=== PATIENT | male | born 1990 | race Caucasian/White ===

== ENCOUNTER 2017-05-18 21:43 | Inpatient (IN) | payer MEDICAID, OTHER ==
[2017-05-19] MEDS: LACTATED RINGER'S 1,000 ML IV (01:09)
[2017-05-19 01:11] LABS: ADD MAN DIFF? NO
[2017-05-19 01:12] LABS: WHITE BLOOD COUNT 6.6 10^3/ul (4.8-10.8)
[2017-05-19 01:12] LABS: BASOPHILS % 0.3 % (0.0-2.0); EOSINOPHILS # 0.3 10^3/ul (0.0-0.5); EOSINOPHILS % 4.6 % (0.0-7.0); HEMATOCRIT 36.7 % (42.0-52.0); HEMOGLOBIN 12.4 g/dl (14.0-18.0); LYMPHOCYTES # 1.8 10^3/ul (0.8-2.9); LYMPHOCYTES % 26.7 % (15.0-51.0); MEAN CORPUSCULAR HEMOGLOBIN 28.8 pg (29.0-33.0); MEAN CORPUSCULAR HGB CONC 33.8 g/dl (32.0-37.0); MEAN CORPUSCULAR VOLUME 85.3 fl (82.0-101.0); MEAN PLATELET VOLUME 8.7 fl (7.4-10.4); MONOCYTE # 0.6 10^3/ul (0.3-0.9); MONOCYTES % 9.1 % (0.0-11.0); NEUTROPHIL # 3.9 10^3/ul (1.6-7.5); PLATELET COUNT 275 10^3/UL (140-415)
[2017-05-19 01:36] LABS: ALANINE AMINOTRANSFERASE 71 IU/L (13-69); ALBUMIN 3.5 g/dl (3.3-4.9); ALBUMIN/GLOBULIN RATIO 1.06; ALKALINE PHOSPHATASE 101 IU/L (42-121); ANION GAP 13 (8-16); ASPARTATE AMINO TRANSFERASE 41 IU/L (15-46); BILIRUBIN,INDIRECT 0.4 mg/dl (0-1.1); BILIRUBIN,TOTAL 0.4 mg/dl (0.2-1.3); BLOOD UREA NITROGEN 15 mg/dl (7-20); CALCIUM 8.6 mg/dl (8.4-10.2); CARBON DIOXIDE 27 mmol/L (21-31); CHLORIDE 106 mmol/L (97-110); CREATININE 0.77 mg/dl (0.61-1.24); GLUCOSE 113 mg/dl (70-220); LIPASE 67 U/L (23-300); POTASSIUM 3.7 mmol/L (3.5-5.1); SODIUM 142 mmol/L (135-144); TOTAL PROTEIN 6.8 g/dl (6.1-8.1)
[2017-05-19] MEDS: CLINDAMYCIN 900 MG/D5W (PMX) 50 ML IVPB (02:12)
[2017-05-19] MEDS: traMADol 50 MG TAB PO (02:22)
[2017-05-19] MEDS: VANCOMYCIN 1 GM (PMX) 250 ML IVPB (03:27)
[2017-05-19] MEDS ORDERED: HYDROCODONE/APAP (5/325) TAB PO (06:00)
[2017-05-19] MEDS ORDERED: ONDANSETRON 4 MG INJ IV (06:00)
[2017-05-19] MEDS ORDERED: ACETAMINOPHEN 325 MG TAB PO (06:00)
[2017-05-19] MEDS ORDERED: ALBUTEROL/IPRATROPIUM (NEB) 3 ML AMP HHN (06:00)
[2017-05-19] MEDS ORDERED: VANCOMYCIN IV PER PHARMACY XX (06:00)
[2017-05-19] MEDS ORDERED: NACL 0.9% 3 ML SYG IV (06:00)
[2017-05-19] MEDS: CEFEPIME 1GM/50 ML (PMX) 50 ML IVPB ×2 (12:13→21:38)
[2017-05-19] MEDS: ENOXAPARIN 40 MG/0.4 ML SYG SC (12:14)
[2017-05-19] MEDS: morphine 2 MG INJ IV ×2 (13:12→19:29)
[2017-05-19] MEDS: VANCOMYCIN 1 GM 250 ML IVPB ×2 (13:12→19:27)
[2017-05-20] MEDS: morphine 2 MG INJ IV ×2 (00:49→06:55)
[2017-05-20] MEDS: VANCOMYCIN 1 GM 250 ML IVPB ×3 (01:36→18:17)
[2017-05-20] MEDS: CEFEPIME 1GM/50 ML (PMX) 50 ML IVPB ×2 (09:43→20:32)
[2017-05-20] MEDS: ENOXAPARIN 40 MG/0.4 ML SYG SC (09:49)
[2017-05-20 10:17] LABS: ADD MAN DIFF? NO
[2017-05-20 10:19] LABS: BASOPHILS % 0.5 % (0.0-2.0); EOSINOPHILS # 0.3 10^3/ul (0.0-0.5); EOSINOPHILS % 4.5 % (0.0-7.0); HEMATOCRIT 41.2 % (42.0-52.0); HEMOGLOBIN 14.2 g/dl (14.0-18.0); LYMPHOCYTES # 1.3 10^3/ul (0.8-2.9); LYMPHOCYTES % 19.8 % (15.0-51.0); MEAN CORPUSCULAR HEMOGLOBIN 29.2 pg (29.0-33.0); MEAN CORPUSCULAR HGB CONC 34.5 g/dl (32.0-37.0); MEAN CORPUSCULAR VOLUME 84.8 fl (82.0-101.0); MEAN PLATELET VOLUME 8.8 fl (7.4-10.4); MONOCYTE # 0.5 10^3/ul (0.3-0.9); MONOCYTES % 7.5 % (0.0-11.0); NEUTROPHIL # 4.5 10^3/ul (1.6-7.5); NEUTROPHILS % 67.1 % (39.0-77.0); PLATELET COUNT 313 10^3/UL (140-415); RED BLOOD COUNT 4.86 10^6/ul (4.70-6.10); RED CELL DISTRIBUTION WIDTH 11.9 % (11.5-14.5)
[2017-05-20 10:19] LABS: WHITE BLOOD COUNT 6.6 10^3/ul (4.8-10.8)
[2017-05-20 10:32] LABS: HEMOGLOBIN A1C 4.4 % (0-5.9)
[2017-05-20 10:38] LABS: ALANINE AMINOTRANSFERASE 61 IU/L (13-69); ALBUMIN 3.6 g/dl (3.3-4.9); ALBUMIN/GLOBULIN RATIO 1.02; ALKALINE PHOSPHATASE 109 IU/L (42-121); ANION GAP 13 (8-16); ASPARTATE AMINO TRANSFERASE 33 IU/L (15-46); BILIRUBIN,INDIRECT 0.3 mg/dl (0-1.1); BILIRUBIN,TOTAL 0.3 mg/dl (0.2-1.3); BLOOD UREA NITROGEN 10 mg/dl (7-20); CALCIUM 9.5 mg/dl (8.4-10.2); CARBON DIOXIDE 28 mmol/L (21-31); CHLORIDE 106 mmol/L (97-110); CHOL/HDL RATIO 3.1 RATIO; CHOLESTEROL 155 mg/dl (100-200); CREATININE 0.78 mg/dl (0.61-1.24); GLUCOSE 107 mg/dl (70-220); HDL CHOLESTEROL 49 mg/dl (30-63); LDL CHOLESTEROL,CALCULATED 73 mg/dl; MAGNESIUM 2.1 mg/dl (1.7-2.5); PHOSPHORUS 2.4 mg/dl (2.5-4.9); POTASSIUM 4.1 mmol/L (3.5-5.1); SODIUM 143 mmol/L (135-144); TOTAL PROTEIN 7.1 g/dl (6.1-8.1); TRIGLYCERIDES 164 mg/dl (0-149)
[2017-05-20 10:43] LABS: VANCOMYCIN,TROUGH 14.2 ug/ml (10.0-20.0)
[2017-05-20] MEDS ORDERED: NICOTINE (14 MG/24 HR) PATCH TRANSDERM (11:30)
[2017-05-20] MEDS: NICOTINE (21 MG/24 HR) PATCH TRANSDERM (12:53)
[2017-05-20] MEDS: SODIUM PHOSPHATE 15 MMOL in SOD CHLORIDE 0.9% 250 ML IVPB (12:54)
[2017-05-20] MEDS ORDERED: morphine LIQ (10 MG/5 ML) CUP PO (15:00)
[2017-05-20] MEDS: traMADol 50 MG TAB PO (19:04)
[2017-05-20] MEDS: METHADONE 5 MG TAB PO (20:34)
[2017-05-20] MEDS: SOD CHLORIDE 0.9% 500 ML IV (22:16)
[2017-05-21] MEDS: VANCOMYCIN 1 GM 250 ML IVPB ×3 (01:54→20:17)
[2017-05-21] MEDS: traMADol 50 MG TAB PO ×2 (01:54→13:26)
[2017-05-21 05:47] LABS: ADD MAN DIFF? NO
[2017-05-21 05:55] LABS: BASOPHILS % 0.4 % (0.0-2.0); EOSINOPHILS # 0.3 10^3/ul (0.0-0.5); EOSINOPHILS % 4.1 % (0.0-7.0); HEMATOCRIT 43.4 % (42.0-52.0); HEMOGLOBIN 14.8 g/dl (14.0-18.0); LYMPHOCYTES # 1.5 10^3/ul (0.8-2.9); LYMPHOCYTES % 21.1 % (15.0-51.0); MEAN CORPUSCULAR HEMOGLOBIN 29.1 pg (29.0-33.0); MEAN CORPUSCULAR HGB CONC 34.1 g/dl (32.0-37.0); MEAN CORPUSCULAR VOLUME 85.3 fl (82.0-101.0); MONOCYTE # 0.4 10^3/ul (0.3-0.9); MONOCYTES % 5.5 % (0.0-11.0); NEUTROPHIL # 4.9 10^3/ul (1.6-7.5); NEUTROPHILS % 68.2 % (39.0-77.0); PLATELET COUNT 334 10^3/UL (140-415); RED BLOOD COUNT 5.09 10^6/ul (4.70-6.10); RED CELL DISTRIBUTION WIDTH 11.9 % (11.5-14.5)
[2017-05-21 05:55] LABS: WHITE BLOOD COUNT 7.1 10^3/ul (4.8-10.8)
[2017-05-21 06:34] LABS: ANION GAP 13 (8-16); BLOOD UREA NITROGEN 12 mg/dl (7-20); CALCIUM 9.2 mg/dl (8.4-10.2); CARBON DIOXIDE 28 mmol/L (21-31); CHLORIDE 106 mmol/L (97-110); CREATININE 0.78 mg/dl (0.61-1.24); GLUCOSE 101 mg/dl (70-220); MAGNESIUM 2.1 mg/dl (1.7-2.5); PHOSPHORUS 3.9 mg/dl (2.5-4.9); POTASSIUM 3.2 mmol/L (3.5-5.1); SODIUM 144 mmol/L (135-144)
[2017-05-21] MEDS: METHADONE 5 MG TAB PO ×2 (09:18→21:40)
[2017-05-21] MEDS: NICOTINE (21 MG/24 HR) PATCH TRANSDERM (09:18)
[2017-05-21] MEDS: CEFEPIME 1GM/50 ML (PMX) 50 ML IVPB ×2 (09:18→22:42)
[2017-05-21] MEDS: ENOXAPARIN 40 MG/0.4 ML SYG SC (09:19)
[2017-05-21] MEDS: POTASSIUM CHLORIDE (SR) 10 MEQ TAB PO ×2 (12:41→16:11)
[2017-05-21 13:24] LABS: HEPATITIS B SURFACE ANTIGEN NEGATIVE (NEGATIVE)
[2017-05-21 13:42] LABS: HEPATITIS B CORE ANTIBODY NEGATIVE (NEGATIVE)
[2017-05-21 13:46] LABS: HEPATITIS B SURFACE ANTIBODY POSITIVE (NEGATIVE)
[2017-05-21 13:46] LABS: HEPATITIS C VIRAL ANTIBODY REACTIVE (NEGATIVE); HIV 1&2 ANTIBODY NEGATIVE (NEGATIVE)
[2017-05-22] MEDS: VANCOMYCIN 1 GM 250 ML IVPB ×3 (01:46→17:31)
[2017-05-22] MEDS: CEFEPIME 1GM/50 ML (PMX) 50 ML IVPB ×2 (09:07→20:44)
[2017-05-22] MEDS: METHADONE 5 MG TAB PO ×2 (09:08→20:44)
[2017-05-22] MEDS: ENOXAPARIN 40 MG/0.4 ML SYG SC (09:08)
[2017-05-22] MEDS: NICOTINE (21 MG/24 HR) PATCH TRANSDERM (09:08)
[2017-05-22] MEDS: traMADol 50 MG TAB PO (12:03)
[2017-05-23] MEDS: VANCOMYCIN 1 GM 250 ML IVPB (02:30)
[2017-05-24] MEDS ORDERED: INFLUENZA VIRUS VACCINE 0.5 ML SYG IM* (09:00)
== END 2017-05-23 02:00 | disposition left against medical advice (07) | DRG 603 ==
LOC: FTE 21:43 → PP2 05-19 04:50
DX: L03.115 Cellulitis of right lower limb (principal); M86.171 Other acute osteomyelitis, right ankle and foot; B19.20 Unspecified viral hepatitis C without hepatic coma; E87.6 Hypokalemia; F11.10 Opioid abuse, uncomplicated; F17.200 Nicotine dependence, unspecified, uncomplicated
CPT/HCPCS: 36415; 73600; 73718; 80048; 80053; 80061; 80202; 83036; 83690; 83735; 84100; 85025; 86703; 86704; 86706; 86803; 87040; 87340; 93005; 93306; 93971; 96361; 96365; 96375; 97161; 99285-25